=== PATIENT | male | born 1965 | race Caucasian/White ===

== ENCOUNTER 2020-01-28 10:29 | Inpatient (IN) ==
[2020-01-28] MEDS ORDERED: Famotidine 20 MG/2 ML VIAL IVP ONE (10:45)
[2020-01-28] MEDS ORDERED: CeFAZolin Syr 2,000MG/20 ML 2,000 MG/20 ML SYRINGE IVPB ONE (11:02)
[2020-01-28] MEDS ORDERED: Ringers Solution, Lactated 1,000 ML IVC SCH (11:15)
[2020-01-28] MEDS ORDERED: Pregabalin 50 MG CAPSULE PO ONE (11:50)
[2020-01-28 12:04] LABS: INR 1.1; Prothrombin Time 12.3 Seconds (9.4-12.1)
[2020-01-28] MEDS ORDERED: *HR* HYDROmorphone PF 0.5 MG/0.5 ML SYRINGE IVP PRN (12:05)
[2020-01-28] MEDS ORDERED: *HR* FentaNYL (PF) 100 MCG/2 ML VIAL IVP PRN (12:05)
[2020-01-28] MEDS ORDERED: *HR* OxyCODONE Immed Rel 5 MG TABLET PO PRN (12:05)
[2020-01-28 12:06] LABS: Activated Partial Thrombo Time 30.1 Seconds (26.0-36.0); Basophils % 0.3 %; Hematocrit 47.1 % (37.5-50.1); Hemoglobin 15.5 g/dL (12.9-16.9); Immature Granulocytes % 0.6 % (0-4); Lymphocytes # 0.6 K/mcL (0.6-4.6); Lymphocytes % 5.2 %; Mean Corpuscular HGB Conc 32.9 g/dL (31.6-35.5); Mean Corpuscular Hemoglobin 29.8 pg (28.0-33.3); Mean Corpuscular Volume 90.4 fL (83.0-100.0); Mean Platelet Volume 9.7 fL (9.4-12.4); Monocytes # 0.4 K/mcL (0.0-1.3); Monocytes % 3.5 %; Platelet Count 168 K/mcL (140-400); Red Blood Count 5.21 M/mcL (4.19-5.50); Red Cell Distribution Width 14.6 % (11.5-14.5); Segmented Neutrophils % 90.4 %; White Blood Count 12.2 K/mcL (4.3-11.1)
[2020-01-28 12:17] LABS: BUN/Creatinine Ratio 18 (6-26); Blood Urea Nitrogen 17 mg/dL (6-20); Calcium 9.4 mg/dL (8.6-10.3); Carbon Dioxide 23 mEq/L (23-29); Chloride 114 mEq/L (98-107); Glucose 152 mg/dL (70-105); Osmolality,Calculated 303 (280-300); Potassium 4.2 mEq/L (3.5-5.1); Sodium 144 mEq/L (136-145); eGFR For African Americans > 60 (> 60); eGFR For Non-African Americans > 60 (> 60)
[2020-01-28] MEDS ORDERED: Bupivacaine-MPF 0.25% 10 ML VIAL ONE (13:11)
[2020-01-28] MEDS ORDERED: *HR* FentaNYL (PF) 100 MCG/2 ML VIAL ONE ×2 (13:44→17:19)
[2020-01-28] MEDS ORDERED: Ondansetron 4 MG/2 ML VIAL ONE (13:44)
[2020-01-28] MEDS ORDERED: Dexamethasone 4 MG/ML VIAL ONE (13:44)
[2020-01-28] MEDS ORDERED: *HR* Rocuronium Bromide 50 MG/5 ML VIAL ONE ×2 (13:44→15:19)
[2020-01-28] MEDS ORDERED: Lidocaine -MPF 2% 2 ML VIAL ONE (13:44)
[2020-01-28] MEDS ORDERED: Lidocaine HCL 4 ML Topical Solution (Laryng-O-Jet Kit Sterile Pak) TP ONE (13:44)
[2020-01-28] MEDS ORDERED: *HR* Propofol 200 MG/20 ML VIAL IVP ONE (13:44)
[2020-01-28] MEDS ORDERED: *HR* Succinylcholine 200 MG/10 ML VIAL IVP ONE (13:44)
[2020-01-28] MEDS ORDERED: *HR* Midazolam HCl 2 MG/2 ML VIAL ONE (13:44)
[2020-01-28] MEDS ORDERED: *HR* PHENYLEPHRINE 1,000 MCG/10 ML SYRINGE IVP ONE (15:45)
[2020-01-28] MEDS ORDERED: *HR* HYDROMORPHONE 2 MG/ML VIAL ONE (16:15)
[2020-01-28] MEDS: *HR* Labetalol 20 MG/4 ML SYRINGE IVP PRN ×2 (17:59→18:14)
[2020-01-28] MEDS ORDERED: Ondansetron 4 MG/2 ML VIAL IVP PRN (19:06)
[2020-01-28] MEDS ORDERED: Naloxone 0.4 MG/ML INJ IVP PRN (19:06)
[2020-01-28] MEDS: 0.9 % Sodium Chloride 1,000 ML IVC SCH (22:05)
[2020-01-28] MEDS: *HR* OxyCODONE/APAP 5/325 TABLET PO PRN (22:22)
[2020-01-28] MEDS: *HR* Heparin 5,000 UNIT/ML VIAL SQ SCH (22:23)
[2020-01-29] MEDS: CeFAZolin 2 GM/120 ML BAG IVPB SCH ×2 (01:10→05:35)
[2020-01-29] MEDS: *HR* OxyCODONE/APAP 5/325 TABLET PO PRN (04:29)
[2020-01-29 04:43] LABS: Hematocrit 43.6 % (37.5-50.1); Mean Corpuscular HGB Conc 32.1 g/dL (31.6-35.5); Mean Corpuscular Hemoglobin 30.4 pg (28.0-33.3); Mean Corpuscular Volume 94.6 fL (83.0-100.0); Mean Platelet Volume 10.1 fL (9.4-12.4); Platelet Count 164 K/mcL (140-400); Red Blood Count 4.61 M/mcL (4.19-5.50); White Blood Count 14.5 K/mcL (4.3-11.1)
[2020-01-29 05:01] LABS: BUN/Creatinine Ratio 19 (6-26); Blood Urea Nitrogen 20 mg/dL (6-20); Calcium 8.7 mg/dL (8.6-10.3); Carbon Dioxide 25 mEq/L (23-29); Chloride 111 mEq/L (98-107); Glucose 142 mg/dL (70-105); Osmolality,Calculated 299 (280-300); Potassium 4.2 mEq/L (3.5-5.1); Sodium 142 mEq/L (136-145); eGFR For African Americans > 60 (> 60); eGFR For Non-African Americans > 60 (> 60)
[2020-01-29] MEDS: *HR* Heparin 5,000 UNIT/ML VIAL SQ SCH ×2 (05:36→18:09)
[2020-01-29] MEDS: 0.9 % Sodium Chloride 1,000 ML IVC SCH ×2 (07:50→15:44)
[2020-01-30] MEDS: 0.9 % Sodium Chloride 1,000 ML IVC SCH (00:56)
[2020-01-30] MEDS: *HR* Heparin 5,000 UNIT/ML VIAL SQ SCH (05:18)
[2020-01-30 05:24] LABS: Hematocrit 44.7 % (37.5-50.1); Hemoglobin 14.4 g/dL (12.9-16.9)
[2020-01-30] MEDS: *HR* OxyCODONE/APAP 5/325 TABLET PO PRN (12:29)
[2020-01-30 15:57] VITALS: BP 124/83
== END 2020-01-30 18:10 | disposition home or self-care (01) | DRG 707 ==
LOC: SAMDAY 10:29 → 3ANU 18:58
PROVIDERS: ADMIT Urology; ATTEND Urology